=== PATIENT | male | born 1995 | race Hispanic/Latino ===

== ENCOUNTER → 2020-07-05 | Day surgery (SDC) | payer MEDICARE ==
[~2020-07-05] MED LIST: ALBENZA200 MG PO; CELEXA20 MG PO; CYTOMEL25 MCG PO; DENTA 5000 PLUS51 GM TOP; DULCOLAX5 MG PO; FENTANYL CITRATE/PF 100MCG/2 ML INJ ONE; FLOMAX0.4 MG PO; GAS X PO; HYDROXYZINE PAM25 MG PO; INVEGA SUS39 MG/0.25 IM; INVEGA9 MG; KETAMINE HCL INJ 50 MG/ML 10 ML VIAL ONE; LACTULOSE20 GM/30 M PO; LEVOTHYROXINE112 MCG PO; LIDOCAINE HCL 2% LOCAL INJ 5 ML SDV VIAL INJ ONE; LITHOBID300 MG PO; METFORMIN HCL500 MG PO; MIDAZOLAM HCL 2 MG/2 ML VIAL ONE; MIRAPEX1 MG PO; MULTIVITAMIN200 MCG PO; MYRBETRIQ50 MG PO; NEXIUM40 MG; NUVIGIL250 MG PO; PROPOFOL IV EMULSION 10 MG/ML 20 ML VIAL ONE; SENNA LAXATIVE8.6 MG PO; TRILEPTAL600 MG; VIT C PO; VIT D3 PO; [UNRECOGNIZED DRUG - OTHER] PO
[2020-07-05 16:55] VITALS: BP 121/84
== END | disposition home or self-care (01) ==
LOC: OR 13:37
PROVIDERS: ATTEND Internal Medicine Gastroenterology
DX: K20.90 Esophagitis, unspecified without bleeding (principal); K59.09 Other constipation; Z68.37 Body mass index [BMI] 37.0-37.9, adult; K29.70 Gastritis, unspecified, without bleeding; K64.8 Other hemorrhoids; E03.9 Hypothyroidism, unspecified; F41.9 Anxiety disorder, unspecified; G47.33 Obstructive sleep apnea (adult) (pediatric); Z01.810 Encounter for preprocedural cardiovascular examination; Z01.812 Encounter for preprocedural laboratory examination; Z20.822 Contact with and (suspected) exposure to COVID-19; Z88.1 Allergy status to other antibiotic agents; Z88.5 Allergy status to narcotic agent; Z88.8 Allergy status to other drugs, medicaments and biological substances
CPT/HCPCS: 36415; 43239; 45378; 82948; 88305; 88312; 93005; J2001; J2250; J2704; J3010; U0002